=== PATIENT | female | born 1950 | race African-American/Black ===

== ENCOUNTER 2018-04-11 11:26 | Outpatient (CLI) | payer OTHER, MEDICARE | END 2018-04-11 11:27 | disposition home or self-care (01) | LOC: BICMAMMO 11:26 | PROVIDERS: ATTEND Nurse Practitioner | DX: Z12.31 Encounter for screening mammogram for malignant neoplasm of breast (principal); R92.1 Mammographic calcification found on diagnostic imaging of breast; N63.10 Unspecified lump in the right breast, unspecified quadrant; N63.20 Unspecified lump in the left breast, unspecified quadrant; N64.89 Other specified disorders of breast | CPT/HCPCS: 77063; 77067 ==

== ENCOUNTER 2018-04-18 09:13 | Outpatient (CLI) | payer OTHER, MEDICARE ==
--- NOTE | 2018-04-18 11:11 | ULT ---
LEFT BREAST ULTRASOUND: Date: 04/18/18 HISTORY: Abnormal mammogram. FINDINGS: Correlation is made with mammograms of today and 04/11/18. Sonographic evaluation of the retroareolar aspect of the left breast demonstrates no abnormality to c orrespond to the finding on the mammogram. IMPRESSION: BIRADS Category 3 - Probably benign findings. A 6 month follow-up left diagnostic mammogram is recomm ended. The facility will notify patient of need for additional imaging services. POS: OFF
== END 2018-04-18 09:14 | disposition home or self-care (01) ==
LOC: BICMAMMO 09:13
PROVIDERS: ATTEND Nurse Practitioner
DX: N63.20 Unspecified lump in the left breast, unspecified quadrant (principal)
CPT/HCPCS: G0279

== ENCOUNTER 2019-12-21 10:19 | Outpatient (CLI) | payer MEDICARE ==
--- NOTE | 2019-12-21 12:01 | MMO ---
Bilateral MAMMO Bilat Screen [facility]. CLINICAL HISTORY: Patient is 69 years old and is seen for screening. The patient has no family history of breast cancer. The patient has no personal history of cancer. The patient has a history of right Excisional Biopsy in June, and right Ultrasound Guided Core Biopsy in June, - benign. VIEWS: The views performed were: bilateral craniocaudal with tomosynthesis and bilateral mediolateral oblique with tomosynthesis. FILMS COMPARED: The present examination has been compared to prior imaging studies performed at [facility] on 07/17/2008, 04/11/2018, 04/18/2018 and 10/27/2018. This study has been interpreted with the assistance of computer-aided detection. MAMMOGRAM FINDINGS: There are scattered fibroglandular densities. Finding 1: There is a stable post-surgical scar seen in the upper-outer region of the left breast. Finding 2: There are calcifications seen in the upper-outer region of the right breast. The calcifications have increased in number. IMPRESSION: FINDING 1: STABLE POST-SURGICAL SCAR IN THE LEFT BREAST IS BENIGN. FINDING 2: CALCIFICATIONS IN THE RIGHT BREAST REQUIRE ADDITIONAL EVALUATION. MAGNIFICATION VIEWS ARE RECOMMENDED. THE RESULTS OF THIS EXAM WERE SENT TO THE PATIENT. ACR BI-RADS Category 0 - Incomplete: Need additional imaging evaluation. [facility] will notify the patient of the need for additional imaging services. MAMMOGRAPHY NOTE: 1. A negative mammogram report should not delay a biopsy if a dominant of clinically suspicious mass is present. 2. Approximately 10% to 15% of breast cancers are not detected by mammography. 3. Adenosis and dense breasts may obscure an underlying neoplasm. Reported by: JUAN JOSE NAVARRO MD Electonically Signed: [id number]
== END 2019-12-21 10:20 | disposition home or self-care (01) ==
LOC: BICMAMMO 10:19
PROVIDERS: ATTEND Nurse Practitioner
DX: Z12.31 Encounter for screening mammogram for malignant neoplasm of breast (principal); R92.1 Mammographic calcification found on diagnostic imaging of breast; Z91.89 Other specified personal risk factors, not elsewhere classified
CPT/HCPCS: 77063; 77067

== ENCOUNTER 2019-12-27 11:38 | Outpatient (CLI) | payer MEDICARE ==
--- NOTE | 2019-12-28 07:29 | MMO ---
Right Breast MAMMO Unilat Diag DDI RT+GLENNY. CLINICAL HISTORY: Patient is 69 years old and is seen for additional evaluation requested from prior study. The patient has no family history of breast cancer. The patient has no personal history of cancer. The patient has a history of right Excisional Biopsy in June, and right Ultrasound Guided Core Biopsy in June, - benign. VIEWS: The views performed were: right craniocaudal spot compression magnification; right mediolateral spot compression magnification; and right mediolateral with tomosynthesis. FILMS COMPARED: The present examination has been compared to prior imaging studies performed at [facility] on 04/11/2018, 04/18/2018, 10/27/2018 and 12/21/2019. This study has been interpreted with the assistance of computer-aided detection. MAMMOGRAM FINDINGS: There are scattered fibroglandular densities. There are new calcifications with grouped or clustered distribution seen in the upper-outer region of the right breast. IMPRESSION: NEW CALCIFICATIONS IN THE RIGHT BREAST ARE SUSPICIOUS. BIOPSY IS RECOMMENDED. THESE MAY BE AMENABLE TO STEREOTACTIC BIOPSY. RESULTS AND RECOMMENDATIONS DISCUSSED WITH THE PATIENT AND QUESTIONS ANSWERED. THE RESULTS OF THIS EXAM WERE SENT TO THE PATIENT. ACR BI-RADS Category 4 - Suspicious abnormality - biopsy should be considered MAMMOGRAPHY NOTE: 1. A negative mammogram report should not delay a biopsy if a dominant of clinically suspicious mass is present. 2. Approximately 10% to 15% of breast cancers are not detected by mammography. 3. Adenosis and dense breasts may obscure an underlying neoplasm. Reported by: ALISON GOODE MD Electonically Signed: [id number]
== END 2019-12-27 11:39 | disposition home or self-care (01) ==
LOC: BICMAMMO 11:38
PROVIDERS: ATTEND Nurse Practitioner
DX: R92.1 Mammographic calcification found on diagnostic imaging of breast (principal)
CPT/HCPCS: 77065; G0279

== ENCOUNTER → 2020-01-03 | Day surgery (SDC) | payer MEDICARE ==
--- NOTE | 2020-01-03 08:22 | MMO ---
MAMMO Brst Bx Stereo History: Right breast calcifications Comparison: Mammogram December 27, 2019 Findings: Patient was brought to the stereotactic biopsy room. All questions were answered. Informed consent obtained. Timeout performed. Patient's right breast was prepped and draped in normal sterile fashion. After adequate local anesthe rebecca with lidocaine, the breast calcifications are accessed. A total of 6 10-gauge cores were obtained. Specimen mammogram demonstrated adequate calcifications. Clip was placed in good position. Patient tolerated the procedure well without complication. Impression: Technically successful stereotactic guided right breast calcification biopsy.
== END ==
LOC: MAMMO 06:57
PROVIDERS: ATTEND Nurse Practitioner
PROC: 0H9T3ZX Drainage of Right Breast, Percutaneous Approach, Diagnostic (ICD-10-PCS; principal; 2020-01-03)
DX: D05.11 Intraductal carcinoma in situ of right breast (principal)
CPT/HCPCS: 19081; 76098; 88305; 88341; 88342

== ENCOUNTER 2020-03-14 06:42 | Day surgery (SDC) | payer MEDICARE ==
[2020-03-12 14:57] VITALS: BMI 28.7
[2020-03-14 09:15] LABS: #Eosinphils 0.1 thou/uL (0.0-0.7); #Lymphocytes 1.6 thou/uL (1.20-3.40); #Monocytes 0.4 thou/uL (0.11-0.59); #Neutrophils 4.9 thou/uL (1.40-6.50); %Basophils 0.4 % (0.0-1.0); %Eosinophils 1.9 % (0.0-10.0); %Lymphocytes 22.3 % (21.0-51.0); %Neutrophils 69.3 % (42.0-75.0); Hemoglobin 13.5 g/dL (12.0-16.0); Mean Corpuscular HGB CONC 33.3 g/dL (32.0-36.0); Mean Corpuscular Hemoglobin 30.2 pg (27.0-31.0); Mean Corpuscular Volume 90.5 fL (78.0-98.0); Mean Platelet Volume 7.8 fL (7.4-10.4); Platelet Count 252 thou/uL (130-400); Red Blood Cell (RBC) Count 4.47 mill/uL (4.20-5.40); White Blood Cell (WBC) Count 7.1 thou/uL (4.8-10.8)
--- NOTE | 2020-03-14 09:30 | ULT ---
Needle localization right breast cancer sonographic guided Right mammogram HISTORY: Right breast cancer. FINDINGS: After explaining the procedure and answering all questions, the subtle hypoechoic hematoma at the superficial upper outer quadrant right breast was visualized. Sterile technique, buffered local anesthesia, and sonographic guidance were used to carefully advance a 5 cm [place] needle and wire through the lesion, immediately adjacent to the localization clip. Guidewire was placed. Patient tolerated the procedure well and was transferred to mammography in good condition. CC and lateral/medial views of the right breast show the distal needle and wire to pass through the s uperior margin of the resolving hematoma. IMPRESSION : Technically successful sonographic guided needle localization right breast lesion.
[2020-03-14 09:42] LABS: Anion Gap 14 mmol/L (10-20); BUN (Urea Nitrogen) 14 mg/dL (9.8-20.1); Calc. Creatinine Clearance 81 mL/min (70-130); Calcium 9.5 mg/dL (7.8-10.44); Carbon Dioxide 28 mmol/L (23-31); Chloride 103 mmol/L (98-107); Glucose 87 mg/dL (83-110); Sodium 141 mmol/L (136-145)
[2020-03-14] MEDS ORDERED: Ondansetron PF 4 MG/2 ML Vial ONE (09:45)
[2020-03-14] MEDS ORDERED: Dexamethasone 20 MG/5 ML VIAL ONE (09:45)
[2020-03-14] MEDS ORDERED: PROPOFOL 200 MG/20 ML VIAL ONE (09:45)
[2020-03-14] MEDS ORDERED: Lidocaine 1% PF 5 ML VIAL ONE (09:45)
--- NOTE | 2020-03-14 10:31 | RAD ---
1 VIEW CHEST: Date: 03/14/2020 HISTORY: Preoperative evaluation. COMPARISON: None. FINDINGS: Cardiac silhouette and pulmonary vasculature are within normal limits. The lungs are clear. No consol idation, pleural effusion, or pulmonary nodule is appreciated. Vascular calcifications are seen in th e thoracic aorta. Degenerative changes involving the spine. There is a right breast needle and wire p resent related to patient's right breast lesion needle localization. IMPRESSION: 1. No acute cardiopulmonary process. 2. Needle and wire overlying right breast related to recent right breast lesion needle and wire loca lization. POS: [facility]
[2020-03-14] MEDS ORDERED: Bupivacaine 0.25% HCL 30 ML VIAL ONE (11:15)
[2020-03-14] MEDS ORDERED: Methylene Blue 50 MG/10 ML AMPUL ONE (11:15)
[2020-03-14] MEDS ORDERED: Lidocaine 2% w/Epinephrine 1:200K 20 ML VIAL ONE (11:15)
[2020-03-14] MEDS ORDERED: Fentanyl 100 MCG/2 ML VIAL ONE (11:43)
--- NOTE | 2020-03-14 13:19 | MMO ---
Surgical specimen mammography HISTORY: Right breast cancer. FINDINGS: Mammographic evaluation of the surgical specimen obtained by Dr. Boyle shows the localiza tion clip and hyperdense resolving hematoma to overlie the surgical specimen. Findings were called to Dr. Boyle in the OR at the time of the exam.
[2020-03-14] MEDS ORDERED: traMADol HCl 50 MG TAB PO PRN ×2 (13:31)
--- NOTE | 2020-03-18 11:01 | PDOC.OP ---
Operative Note - Operative Note Operative Note: PROCEDURE: Right breast needle localized excisional breast biopsy SURGEON: Marisol Boyle M.D. DATE: 03/14/2020 PREOPERATIVE DIAGNOSIS: Right breast DCIS POSTOPERATIVE DIAGNOSIS: Right breast DCIS HISTORY: Patient with abnormal screening mammogram with stereotactic biopsy showing DCIS. She had a small palpable mass at the biopsy site and a hypoechoic area on ultrasound which was felt to be consistent with hematoma. She underwent needle localization of this mass under ultrasound with mammogram confirmation that the needle was in the area of the previous biopsy clip. She now presents for needle localized excisional breast biopsy. PROCEDURE IN DETAIL: After informed consent was obtained the patient was taken to the operating room and placed in the supine position. General anesthesia was administered and the breast was prepped and draped. The mass in the right lateral breast was no longer definitely palpable but there was some dimpling of the skin overlying the end of the biopsy needle. Since the hematoma cavity had previously been palpable quite superficially under the skin since the biopsy wire simply dimpling the skin, the decision was made to excise an ellipse of skin with the underlying mass including the area with the dimpling. An elliptical incision was made and dissection carried down to the wire medially which was cut at the level of the skin and drawn out through the incision taking care not to displace the end of the wire. Flaps were raised in all directions and dissection was then carried down circumferentially to below the level of the tissues localized by the wire. The tissues deep to the wire were then transected and the specimen was removed and marked for orientation with a long lateral and short superior suture. It was sent for specimen mammogram which showed presence of the clip within the specimen. The wound was irrigated and hemostasis obtained using Bovie electrocautery. Additional local anesthesia was infused circumferentially for postoperative pain control. The subcutaneous tissues were reapproximated with a running 3-0 Monocryl suture and additional local anesthesia infused into the biopsy cavity. The skin was then closed with a running 4-0 subcuticular Monocryl suture. Dermabond dressings were placed to both incisions and once this was dry, fluffs compression dressings were placed and secured to the skin with tape. The patient was extubated and taken to the recovery room in good condition. Estimated blood loss was minimal. There were no complications. Specimen is right lateral breast mass.
== END 2020-03-14 14:40 | disposition home or self-care (01) ==
LOC: SDC 06:42
PROVIDERS: ATTEND Surgery
PROC: BH40ZZZ Ultrasonography of Right Breast (ICD-10-PCS; principal; 2020-03-14)
DX: D05.11 Intraductal carcinoma in situ of right breast (principal); I10 Essential (primary) hypertension
CPT/HCPCS: 19285; 71045; 76098; 80048; 85025; 93005; Q9968; 36415; 88307; 93010; J0690; J1100; J2405; J2704; J3010; S0020

== ENCOUNTER 2020-03-25 05:37 | Day surgery (SDC) | payer MEDICARE ==
[2020-03-21 13:40] VITALS: BMI 28.5
[2020-03-25] MEDS ORDERED: EPINEPHrine 1 MG/ML AMP ONE (06:44)
[2020-03-25] MEDS ORDERED: Bupivacaine 0.25% HCL 30 ML VIAL ONE (06:44)
[2020-03-25] MEDS ORDERED: Fentanyl 100 MCG/2 ML VIAL ONE (07:02)
[2020-03-25] MEDS ORDERED: Dexamethasone 20 MG/5 ML VIAL ONE (08:48)
[2020-03-25] MEDS ORDERED: PROPOFOL 200 MG/20 ML VIAL ONE (08:48)
[2020-03-25] MEDS ORDERED: Ondansetron PF 4 MG/2 ML Vial ONE (08:48)
[2020-03-25] MEDS ORDERED: Ketorolac Tromethamine 30 MG/ML VIAL ONE (08:48)
[2020-03-25] MEDS ORDERED: Lidocaine 1% PF 5 ML VIAL ONE (08:48)
--- NOTE | 2020-03-25 12:30 | PDOC.OP ---
Operative Note - Operative Note Operative Note: PROCEDURE: Reexcision right breast biopsy SURGEON: Marisol Boyle M.D. 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 She underwent needle localized excisional breast biopsy a week ago with much more extensive DCIS than anticipated. 95% of the generous biopsy specimen was involved with DCIS. She had positive margins anteriorly, posteriorly, and inferiorly, and other margins were very close. She decided to proceed with reexcision to attempt to obtain negative margins. FINDINGS: No palpable abnormalities. Entire biopsy cavity was reexcised with generous inferior margin. As much anterior and posterior as possible was taken but the biopsy cavity rather closely abutted the skin anteriorly and amount of posterior margin able to be taken was limited by the pectoralis muscle posteriorly. PROCEDURE IN DETAIL: After informed consent was obtained and appropriate preoperative antibiotics were administered patient was taken to the operating room she was placed in the supine position and general anesthesia by ventral mask airway was administered. She was prepped and draped in the standard sterile fashion and the previous biopsy incision was reopened. The subcutaneous sutures were cut and the biopsy cavity entered and seroma fluid evacuated. Local anesthesia was infused to the skin and subcutaneous tissues surrounding the biopsy cavity. The entire biopsy cavity was excised without reentering the cavity, obtaining new margins in all directions. She had 7 mm margins medially so not much tissue was taken from that area but all other margins were either positive or very close. Generous inferior margins were taken. Anteriorly the dissection was limited by proximity to the skin and posteriorly only another centimeter or so could be taken as the biopsy cavity was quite close to the pectoralis muscle. The entire specimen was excised and oriented for pathology with a long lateral, short superior, and looped superficial margin. The wound was irrigated and hemostasis obtained using Bovie electrocautery. 1 persistently oozing area was controlled with a [id number] 3-0 Monocryl suture. Once excellent hemostasis had been obtained, additional local anesthesia was infused for postoperative pain control. The subcutaneous tissues were reapproximated with 3-0 Monocryl sutures and additional local anesthesia infused on the wound needle into the biopsy cavity. The skin incision was closed with a running 4-0 subcuticular suture and Dermabond dressings were placed. Once this was dry a fluff compression dressing was placed and secured with tape. The patient was taken to recovery in good condition. Estimated blood loss was minimal. There were no complications. Specimen is reexcision of right breast biopsy.
== END 2020-03-25 10:27 | disposition home or self-care (01) ==
LOC: SDC 05:37
PROVIDERS: ATTEND Surgery
PROC: 0HBT0ZZ Excision of Right Breast, Open Approach (ICD-10-PCS; principal; 2020-03-25)
DX: D05.11 Intraductal carcinoma in situ of right breast (principal); D24.1 Benign neoplasm of right breast; N60.81 Other benign mammary dysplasias of right breast; E78.5 Hyperlipidemia, unspecified; I10 Essential (primary) hypertension; Z79.82 Long term (current) use of aspirin; Z79.899 Other long term (current) drug therapy
CPT/HCPCS: 88307; J0171; J0690; J1100; J1885; J2405; J2704; J3010; S0020

== ENCOUNTER 2020-04-30 07:26 | Day surgery (SDC) | payer MEDICARE ==
[2020-04-29 08:45] VITALS: BMI 28.9
--- NOTE | 2020-04-30 08:42 | NM ---
Lymphoscintigraphy right breast HISTORY: DCIS right breast upper outer quadrant. FINDINGS: After answering all questions, a total volume of 1 cc liquid containing 418 mCi technetium 99m filtered sulfur colloid was injected into the skin at the 12, 3, 6, and 9:00 periareolar positions of the right breast. Injection sites were centimeters by the patient and imaging performed. Immediate imaging shows a focus of increased radiotracer uptake at the lateral slightly superior aspe ct of the right breast, expected location of an intramammary lymph node. Skin overlying the lymph node was marked and patient sent for day surgery. IMPRESSION : Technically successful lymphoscintigraphy right breast revealing a single sentinel lymph node at the axillary tail.
[2020-04-30] MEDS ORDERED: Acetaminophen 500 MG TAB ONE (08:44)
[2020-04-30] MEDS ORDERED: Rocuronium Bromide 10 MG/ML (10ML VIAL) ONE (09:10)
[2020-04-30] MEDS ORDERED: Lidocaine 1% PF 5 ML VIAL ONE (09:10)
[2020-04-30] MEDS ORDERED: Glycopyrrolate 0.2 MG/ML 5 ML SYRINGE ONE (09:10)
[2020-04-30] MEDS ORDERED: Ondansetron PF 4 MG/2 ML Vial ONE (09:10)
[2020-04-30] MEDS ORDERED: Dexamethasone 20 MG/5 ML VIAL ONE (09:10)
[2020-04-30] MEDS ORDERED: PROPOFOL 200 MG/20 ML VIAL ONE (09:10)
[2020-04-30 09:34] LABS: #Eosinphils 0.2 thou/uL (0.0-0.7); #Lymphocytes 1.7 thou/uL (1.20-3.40); #Monocytes 0.4 thou/uL (0.11-0.59); %Basophils 0.4 % (0.0-1.0); %Eosinophils 2.3 % (0.0-10.0); %Lymphocytes 23.9 % (21.0-51.0); %Monocytes 5.3 % (0.0-10.0); %Neutrophils 68.1 % (42.0-75.0); Hemoglobin 13.7 g/dL (12.0-16.0); Mean Corpuscular HGB CONC 33.1 g/dL (32.0-36.0); Mean Corpuscular Hemoglobin 30.2 pg (27.0-31.0); Mean Corpuscular Volume 91.2 fL (78.0-98.0); Mean Platelet Volume 8.5 fL (7.4-10.4); Platelet Count 228 thou/uL (130-400); RBC Distribution Width 12.8 % (11.5-14.5); Red Blood Cell (RBC) Count 4.52 mill/uL (4.20-5.40); White Blood Cell (WBC) Count 7.3 thou/uL (4.8-10.8)
[2020-04-30 09:56] LABS: Anion Gap 13 mmol/L (10-20); BUN (Urea Nitrogen) 14 mg/dL (9.8-20.1); Calc. Creatinine Clearance 79 mL/min (70-130); Calcium 9.6 mg/dL (7.8-10.44); Carbon Dioxide 27 mmol/L (23-31); Chloride 103 mmol/L (98-107); Glucose 81 mg/dL (83-110); Potassium 3.7 mmol/L (3.5-5.1); Sodium 139 mmol/L (136-145)
[2020-04-30] MEDS ORDERED: Lidocaine 1% w/Epinephrine 1:100K 20 ML VIAL ONE (11:39)
[2020-04-30] MEDS ORDERED: Bupivacaine 0.25% HCL 30 ML VIAL ONE (11:39)
[2020-04-30] MEDS ORDERED: Fentanyl 250 MCG/5 ML VIAL ONE (11:50)
[2020-04-30] MEDS ORDERED: Isosulfan Blue 50 MG/5 ML VIAL ONE (12:29)
--- NOTE | 2020-05-02 13:11 | PDOC.OP ---
Operative Note - Operative Note Operative Note: PROCEDURE: Right sentinel lymph node biopsy and skin and nipple sparing mastectomy DATE: 04/30/2020 PREOPERATIVE DIAGNOSIS: Multifocal DCIS of the right breast with multiple positive margins on reexcision. SURGEON: Marisol Boyle MD HISTORY: Patient with DCIS of the right breast status post excision with multiple positive margins. She underwent reexcision still with multiple positive margins, including some margins which had previously been negative. She was found to have multifocal disease which was significantly underestimated by her preoperative mammogram and exam. After discussing her options she decided to undergo simple mastectomy with reconstruction postoperatively. Since the tumor is not in close proximity to the nipple or areola she was felt to be a candidate for skin and nipple sparing mastectomy using a inframammary crease incision. [place] lymph node biopsy was recommended since this would not be possible postoperatively if she were discovered to have occult invasive disease. PROCEDURE IN DETAIL: After informed consent was obtained the patient was taken to the operating room and placed in the supine position. General anesthesia was administered and the right breast was prepped with alcohol and lymphazurin injected subdermally behind the nipple. The breast was massaged for 5 minutes, and then the patient was positioned, prepped and draped. The patient had undergone lymphoscintigraphy preoperative, sentinel lymph node was felt to be present in the axillary tail. There was an area of increased activity in the axillary tail but this tissue was going to be removed with mastectomy. Therefore attention was focused on the axilla itself. There was no focal increased area of uptake on examination through the skin. Local anesthesia was infused to the midportion of the hairbearing skin of the left axilla. The skin was incised and dissection carried down to the the axilla which was carefully examined. There was 1 lymph node identified which appeared slightly enlarged and this was removed as lymph node #1. It was not blue and there was no increased activity in this lymph node so it was not felt to be a true sentinel lymph node. On careful examination an area of slightly increased activity was identified and a small normal-appearing lymph node identified. This was excised and sent as axillary lymph node #2. It did have slightly increased activity by neoprobe but was not blue. The axilla was then carefully examined again and a third lymph node with slightly increased activity was identified and excised. This also was not blue but did have slightly increased activity by neoprobe and was sent as axillary lymph node #3. The axilla was examined and palpated and no other palpable abnormal nodes nor areas of increased activity or Lymphazurin uptake were found. The wound was irrigated and hemostasis verified. Additional local anesthesia was infused for postoperative pain control and the subcutaneous tissues were reapproximated with 3-0 Monocryl suture. Attention was then turned to the creation of the right skin and nipple sparing mastectomy. An inframammary incision was made and raised superiorly to the level of the clavicle and medially to the level of the sternum. As the skin and subcutaneous tissues were divided overlying the previous lumpectomy site, dissection had to be carried out very close to the dermis to avoid entering the previous biopsy cavity. As dissection was carried out beneath the areola, the tissue immediately underlying the nipple was marked with a looped suture for pathology. The pectoralis fascia was incised and the breast tissue mobilized from medial to lateral, remaining superficial to the level of the axilla laterally but taking care to include the entire axillary tail. The patient was noted to have an extremely thin and flimsy pectoralis major muscle and despite extreme care taken to spare the muscle, some of the muscle fibers were detached medially during dissection and had to be reattached to the chest wall with 3-0 Vicryl suture. The breast tissue was marked for orientation with a long suture at the axillary tail and a short superior suture and passed from the field. The wound was irrigated and examined for hemostasis which was excellent. A INDIRA drain was placed and secured to the skin exiting laterally. The subcutaneous and deep dermal tissues were reapproximated with [id number] Vicryl sutures at intervals and the skin was closed with running 4-0 subcuticular Monocryl suture. Dermabond dressings were placed and a drain sponge and Tegaderm dressing placed at the INDIRA exit site. Once the Dermabond was dry, a fluffs and [place] dressing was placed. The patient was extubated and taken to recovery in good condition. Estimated blood loss was minimal. Specimen is right breast and 3 axillary lymph nodes.
== END 2020-04-30 17:25 | disposition home or self-care (01) ==
LOC: SDC 07:26
PROVIDERS: ATTEND Surgery
PROC: 0HTT0ZZ Resection of Right Breast, Open Approach (ICD-10-PCS; principal; 2020-04-30)
PROC: 07B50ZX Excision of Right Axillary Lymphatic, Open Approach, Diagnostic (ICD-10-PCS; 2020-04-30)
DX: D05.11 Intraductal carcinoma in situ of right breast (principal); E78.5 Hyperlipidemia, unspecified; I10 Essential (primary) hypertension; M85.80 Other specified disorders of bone density and structure, unspecified site; I08.1 Rheumatic disorders of both mitral and tricuspid valves; Z79.82 Long term (current) use of aspirin; Z79.899 Other long term (current) drug therapy
CPT/HCPCS: 19303; 38525; 38900; 78195; 80048; 85025; 88307; A9541; Q9968; J0690; J1100; J2405; J2704; J3010; S0020

== ENCOUNTER 2020-05-30 10:42 | Day surgery (SDC) | payer MEDICARE ==
[2020-05-28 15:15] VITALS: BMI 28.5
[2020-05-30] MEDS ORDERED: Heparin 5,000 UNITS/ML VIAL ONE (11:11)
[2020-05-30] MEDS ORDERED: Bupivacaine 0.25% HCL 30 ML VIAL ONE (12:15)
[2020-05-30] MEDS ORDERED: Gentamicin 80 MG/2 ML VIAL ONE (12:15)
[2020-05-30] MEDS ORDERED: EPINEPHrine 1 MG/ML AMP ONE (12:15)
[2020-05-30] MEDS ORDERED: Fentanyl 100 MCG/2 ML VIAL ONE ×2 (12:35→12:48)
[2020-05-30] MEDS ORDERED: Midazolam HCl 2 mg/2 ml Vial ONE (12:35)
[2020-05-30] MEDS ORDERED: PHENYLEPHRINE-NS 100 MCG/ML 10 ML SYRINGE ONE (13:09)
[2020-05-30] MEDS ORDERED: Lidocaine 1% PF 5 ML VIAL ONE (13:09)
[2020-05-30] MEDS ORDERED: Rocuronium Bromide 10 MG/ML (10ML VIAL) ONE (13:09)
[2020-05-30] MEDS ORDERED: Glycopyrrolate 0.2 MG/ML 5 ML SYRINGE ONE (13:09)
[2020-05-30] MEDS ORDERED: Bupivacaine HCl 0.5%/Epinephrine 1:200,000/PF 30 ml Vial ONE (13:09)
[2020-05-30] MEDS ORDERED: PROPOFOL 200 MG/20 ML VIAL ONE (13:09)
[2020-05-30] MEDS ORDERED: Ondansetron PF 4 MG/2 ML Vial ONE (13:09)
[2020-05-30] MEDS ORDERED: Fentanyl 100 MCG/2 ML VIAL IV PRN (14:56)
[2020-05-30] MEDS ORDERED: HYDROcodone/Acetaminophen 5/325 mg Tablet PO PRN ×2 (15:00)
[2020-05-30] MEDS ORDERED: Ondansetron PF 4 MG/2 ML Vial IVP PRN (15:00)
[2020-05-30] MEDS ORDERED: traMADol HCl 50 MG TAB PO PRN ×2 (15:00)
[2020-05-30] MEDS ORDERED: Zolpidem Tartrate 5 MG TAB PO PRN (15:00)
[2020-05-30] MEDS ORDERED: Ketorolac Tromethamine 30 MG/ML VIAL IVP PRN (15:00)
[2020-05-30] MEDS ORDERED: Ropivacaine 0.2% 550 ML 550 ML NERVE BLCK SCH (15:00)
[2020-05-30] MEDS ORDERED: Promethazine HCl 25 MG/ML VIAL IM PRN (15:00)
== END 2020-05-30 17:38 | disposition home or self-care (01) ==
LOC: SDC 10:42
PROVIDERS: ATTEND Plastic Surgery
PROC: 0HH Skin and Breast, Insertion (ICD-10-PCS; principal; 2020-05-30)
DX: Z42.1 Encounter for breast reconstruction following mastectomy (principal); N60.31 Fibrosclerosis of right breast; E78.5 Hyperlipidemia, unspecified; I10 Essential (primary) hypertension; J98.11 Atelectasis; Z85.3 Personal history of malignant neoplasm of breast; Z79.82 Long term (current) use of aspirin; Z79.899 Other long term (current) drug therapy
CPT/HCPCS: 19357; 71045; 87070; 87075; 87205; A4306; C1713; 88305; J0171; J0690; J1580; J1644; J2250; J2405; J2704; J2795; J3010; J3370; J3490; S0020

== ENCOUNTER 2020-10-31 09:19 | Day surgery (SDC) | payer MEDICARE ==
[2020-10-30 15:40] VITALS: BMI 28.5
[2020-10-31] MEDS ORDERED: Heparin 5,000 UNITS/ML VIAL ONE (09:59)
[2020-10-31] MEDS ORDERED: Fentanyl 100 MCG/2 ML VIAL ONE (10:40)
[2020-10-31] MEDS ORDERED: Gentamicin 80 MG/2 ML VIAL ONE (10:52)
[2020-10-31] MEDS ORDERED: EPINEPHrine 1 MG/ML AMP ONE ×2 (10:52→12:17)
[2020-10-31] MEDS ORDERED: Bupivacaine 0.25% HCL 30 ML VIAL ONE (10:52)
[2020-10-31] MEDS ORDERED: Dexamethasone 20 MG/5 ML VIAL ONE (12:10)
[2020-10-31] MEDS ORDERED: PROPOFOL 200 MG/20 ML VIAL ONE (12:10)
[2020-10-31] MEDS ORDERED: Ondansetron PF 4 MG/2 ML Vial ONE (12:10)
[2020-10-31] MEDS ORDERED: Lidocaine 1% PF 5 ML VIAL ONE (12:10)
[2020-10-31] MEDS ORDERED: PHENYLEPHRINE-NS 100 MCG/ML 10 ML SYRINGE ONE (12:10)
[2020-10-31] MEDS ORDERED: Ketorolac Tromethamine 30 MG/ML VIAL ONE (12:10)
[2020-10-31] MEDS ORDERED: Neomycin-Polymyxin 1 ML AMP ONE (12:36)
== END 2020-10-31 15:52 | disposition home or self-care (01) ==
LOC: SDC 09:19
PROVIDERS: ATTEND Plastic Surgery
PROC: 0HPT0NZ Removal of Tissue Expander from Right Breast, Open Approach (ICD-10-PCS; principal; 2020-10-31)
PROC: 0HRT0JZ Replacement of Right Breast with Synthetic Substitute, Open Approach (ICD-10-PCS; 2020-10-31)
PROC: 0H0T37Z Alteration of Right Breast with Autologous Tissue Substitute, Percutaneous Approach (ICD-10-PCS; 2020-10-31)
DX: Z45.811 Encounter for adjustment or removal of right breast implant (principal); E78.5 Hyperlipidemia, unspecified; I10 Essential (primary) hypertension; Z85.3 Personal history of malignant neoplasm of breast; Z79.82 Long term (current) use of aspirin; Z79.899 Other long term (current) drug therapy
CPT/HCPCS: 11970; 15771; 19370; 93005; C1713; 93010; J0171; J0690; J1100; J1580; J1644; J1885; J2405; J2704; J3010; J3370; S0020

== ENCOUNTER 2021-01-01 08:14 | Outpatient (CLI) | payer MEDICARE | END 2021-01-01 08:15 | disposition home or self-care (01) | LOC: BICMAMMO 08:14 | PROVIDERS: ATTEND Nurse Practitioner | DX: Z08 Encounter for follow-up examination after completed treatment for malignant neoplasm (principal); Z98.82 Breast implant status; Z98.890 Other specified postprocedural states; Z85.3 Personal history of malignant neoplasm of breast | CPT/HCPCS: 77065; G0279 ==

== ENCOUNTER 2023-01-07 08:24 | Outpatient (CLI) | payer MEDICARE | END 2023-01-07 08:25 | disposition home or self-care (01) | LOC: BICMAMMO 08:24 | PROVIDERS: ATTEND Specialist | DX: D05.11 Intraductal carcinoma in situ of right breast (principal) | CPT/HCPCS: 77065; G0279 ==

== ENCOUNTER 2023-05-18 09:17 | Outpatient (CLI) | payer MEDICARE | END 2023-05-18 09:18 | disposition home or self-care (01) | LOC: BICMAMMO 09:17 | PROVIDERS: ATTEND Family Medicine | DX: Z13.820 Encounter for screening for osteoporosis (principal); M81.0 Age-related osteoporosis without current pathological fracture; M85.851 Other specified disorders of bone density and structure, right thigh; M85.852 Other specified disorders of bone density and structure, left thigh; Z78.0 Asymptomatic menopausal state | CPT/HCPCS: 77080 ==

== ENCOUNTER 2024-01-11 09:19 | Outpatient (CLI) | payer MEDICARE | END 2024-01-11 09:20 | disposition home or self-care (01) | LOC: BICMAMMO 09:19 | PROVIDERS: ATTEND Specialist | DX: Z12.31 Encounter for screening mammogram for malignant neoplasm of breast (principal); Z91.89 Other specified personal risk factors, not elsewhere classified; Z90.11 Acquired absence of right breast and nipple; Z98.82 Breast implant status; Z98.890 Other specified postprocedural states | CPT/HCPCS: 77063; 77067 ==

== ENCOUNTER 2024-09-28 08:29 | Outpatient (CLI) | payer MEDICARE | END 2024-09-28 08:30 | disposition home or self-care (01) | LOC: BICMAMMO 08:29 | PROVIDERS: ATTEND Internal Medicine Hematology & Oncology | DX: M81.8 Other osteoporosis without current pathological fracture (principal); C50.411 Malignant neoplasm of upper-outer quadrant of right female breast; M85.89 Other specified disorders of bone density and structure, multiple sites | CPT/HCPCS: 77080 ==

== ENCOUNTER 2025-01-11 08:13 | Outpatient (CLI) | payer MEDICARE | END 2025-01-11 08:14 | disposition home or self-care (01) | LOC: BICMAMMO 08:13 | PROVIDERS: ATTEND Family Medicine | DX: Z12.31 Encounter for screening mammogram for malignant neoplasm of breast (principal); Z85.3 Personal history of malignant neoplasm of breast; Z91.89 Other specified personal risk factors, not elsewhere classified; Z98.890 Other specified postprocedural states | CPT/HCPCS: 77063; 77067 ==